=== PATIENT | female | born 1995 | race Two or more races ===

== ENCOUNTER 2020-10-17 08:45 | Emergency (ER) | payer OTHER ==
[~2020-10-17] VITALS: Ht 162.6 cm; Wt 100.0 kg
--- NOTE | 2020-10-17 09:23 | PHYS DOC ---
Past Medical History Past Medical History: No Pertinent History Past Surgical History: No Surgical History Smoking Status: Never Smoker Alcohol Use: None Drug Use: None General Adult EDM: Chief Complaint: MECHANICAL FALL HPI: HPI: 24-year-old female who fell this morning while slipping on ice. She is about 9 weeks by ultrasound. She initially had some knee pain which is since resolved. Now she has some lower abdominal pain with cramping and has had vaginal bleeding. She reports being a positive blood type. She denies nausea or vomiting. She denies fevers or chills. Her pain is a cramping nonradiating pain that is mild to moderate. She denies head injury or loss of consciousness. Review of systems negative for chest pain shortness of breath vomiting fevers chills. All other review of systems negative. ED course: 24-year-old female presenting after a fall approximately 9 weeks by ultrasound. She is a -0-0-2 . knee exam is unremarkable. Abdomen is soft and nontender to palpation. Patient had a miscarriage in the emergency department. tissue was sent to pathology. I spoke with OB gynecology because she continued to have vaginal bleeding. She was then transferred to the operating room for a D&C. The patient was then discharged after the procedure. Heart Score: Risk Factors: Risk Factors: DM, Current or recent (<one month) smoker, HTN, HLP, family history of CAD, obesity. Risk Scores: Score 0 - 3: 2.5% MACE over next 6 weeks - Discharge Home Score 4 - 6: 20.3% MACE over next 6 weeks - Admit for Clinical Observation Score 7 - 10: 72.7% MACE over next 6 weeks - Early Invasive Strategies Allergies: Allergies: Allergies Coded Allergies Type Severity Reaction Last Updated Verified No Known Drug Allergies 10/17/20 No Physical Exam: PE: Constitutional: Well developed, well nourished, no acute distress, non-toxic appearance. [] HENT: Normocephalic, atraumatic, bilateral external ears normal, oropharynx moist, no oral exudates, nose normal. [] Eyes: PERRLA, EOMI, conjunctiva normal, no discharge. [] Neck: Normal range of motion, no tenderness, supple, no stridor. [] Cardiovascular:Heart rate regular rhythm, no murmur [] Lungs & Thorax: Bilateral breath sounds clear to auscultation [] Abdomen: Bowel sounds normal, soft, no tenderness, no masses, no pulsatile masses. No rebound tenderness or guarding. Skin: Warm, dry, no erythema, no rash. [] Back: No tenderness, no CVA tenderness. [] Extremities: The patient's left knee is nontender to palpation without abrasions lacerations or ecchymosis. Normal range of motion. Palpable pulse distally with DP pulse. 2-second cap refill with normal motor and sensory function of the foot. Ankle is nontender. The remainder the extremities are nontender with normal range of motion and palpable pulse and 2-second cap refill. No pain at the joints with range of motion. Neurologic: Alert and oriented X 3, normal motor function, normal sensory function, no focal deficits noted. [] Psychologic: Affect normal, judgement normal, mood normal. [] EKG: EKG: [] Radiology/Procedures: Radiology/Procedures: [] Course & Med Decision Making: Course & Med Decision Making Pertinent Labs and Imaging studies reviewed. (See chart for details) [] Dragon Disclaimer: Dragon Disclaimer: This electronic medical record was generated, in whole or in part, using a voice recognition dictation system. Departure Departure Impression: Primary Impression: Vaginal bleeding during Additional Impression: Miscarriage Disposition: 01 DC HOME SELF CARE/HOMELESS Condition: STABLE Patient Instructions: Miscarriage Additional Instructions: Follow-up with your primary physician in 1 to 2 days. Return to the emergency department if you have any new or concerning findings. Scripts Ibuprofen (IBUPROFEN) 800 Mg Tablet 800 MG PO PRN Q8HRS PRN for INFLAMMATION, #30 TAB 2 Refills Prov: KEILA GONSALVES MD 10/17/20 Cephalexin (KEFLEX) 750 Mg Capsule 1 CAP PO BID for 5 Days, #10 CAP 0 Refills Prov: LIANNE STARR MD 10/17/20 Hydrocodone Bit/Acetaminophen (HYDROCODONE-APAP 5-325 ) 1 Tab Tablet 1 TAB PO PRN Q8HRS PRN for sev, #8 TAB 0 Refills Prov: LIANNE STARR MD 10/17/20 LIANNE STARR MD Oct 17, 2020 09:23
[2020-10-17 10:14] LABS: BASO # 0.1 x10^3/uL (0.0-0.2); BASO % 1 % (0-3); EOS # 0.1 x10^3/uL (0.0-0.7); EOS % 1 % (0-3); HEMATOCRIT 37.9 % (36.0-47.0); HEMOGLOBIN 12.6 g/dL (12.0-15.5); LYMPH # 2.6 x10^3/uL (1.0-4.8); LYMPH % 18 % (24-48); MEAN CORPUSCULAR HEMOGLOBIN 27 pg (25-35); MEAN CORPUSCULAR HGB CONC 33 g/dL (31-37); MEAN CORPUSCULAR VOLUME 80 fL (79-100); MONO # 0.9 x10^3/uL (0.0-1.1); MONO % 7 % (0-9); NEUT # 10.8 x10^3/uL (1.8-7.7); NEUT % 74 % (31-73); PLATELET COUNT 333 x10^3/uL (140-400); RED BLOOD COUNT 4.74 x10^6/uL (3.50-5.40); RED CELL DISTRIBUTION WIDTH 14.3 % (11.5-14.5); WHITE BLOOD COUNT 14.6 x10^3/uL (4.0-11.0)
--- NOTE | 2020-10-17 10:22 | RAD ---
EXAM: Obstetrics sonogram. HISTORY: Pain and bleeding. TECHNIQUE: Transabdominal and transvaginal sonographic imaging of the pelvis was performed. COMPARISON: None. FINDINGS: The uterus measures 12.6 x 4.7 x 6.2 cm. There is a single intrauterine gestational sac and pole. The gestational sac and pole descend into the central canal during the exam. The f etal heart rate is normal at 141 bpm. The crown-rump length is 2.11 cm, corresponding with a ge stational age of 8 weeks and 5 days. The ovaries are obscured. There is active the vaginal bleeding d uring the exam. IMPRESSION: 1. Single intrauterine fetus with normal heart rate and gestational age based on ultrasound measureme nts of 8 weeks and 5 days actively descending into the cervical canal with active vaginal bleeding du ring the exam, consistent with impending miscarriage. 2. These findings were communicated to the emergency department by the hydrometallurgical engineer at the time of the exam. Electronically signed by: Zakia Chu MD (10/17/2020 10:19 AM) [id number]
[2020-10-17 10:31] LABS: CALCIUM 8.8 mg/dL (8.5-10.1); CREATININE 0.6 mg/dL (0.6-1.0); GFR 120.8; POTASSIUM 3.7 mmol/L (3.5-5.1)
[2020-10-17 10:34] LABS: BILIRUBIN,URINE NEGATIVE (NEG); CLARITY,URINE CLEAR; COLOR,URINE YELLOW; NITRITE,URINE NEGATIVE (NEG); PROTEIN,URINE NEGATIVE (NEG-TRACE)
[2020-10-17 10:36] LABS: ALBUMIN 3.5 g/dL (3.4-5.0); DIRECT BILIRUBIN 0.2 mg/dL (0.0-0.2); TOTAL BILIRUBIN 0.5 mg/dL (0.2-1.0); TOTAL PROTEIN 6.9 g/dL (6.4-8.2)
[2020-10-17 10:51] LABS: BACTERIA,URINE 0 /HPF (0-FEW)
[2020-10-17] MEDS ORDERED: HYDROmorphone 2 MG/ML VIAL IV/SQ PRN (12:00)
[2020-10-17] MEDS ORDERED: HYDR-2761 PO ×2 (12:26→17:39)
[2020-10-17] MEDS ORDERED: HYDROcodone/APAP 5/325MG 1 TAB TABLET PO ONE (12:30)
[2020-10-17] MEDS ORDERED: CEPH750C9 PO (12:41)
[2020-10-17] MEDS ORDERED: MORPHINE SULFATE 2 MG/ML VIAL. IV PRN (15:15)
[2020-10-17] MEDS ORDERED: LIDOCAINE 1% PF 2 ML VIAL. ID PRN (15:15)
[2020-10-17] MEDS ORDERED: HYDROmorphone 2 MG/ML VIAL IV PRN (15:15)
[2020-10-17] MEDS ORDERED: PROCHLORPERAZINE 10 MG/2 ML VIAL. IV PRN (15:15)
[2020-10-17] MEDS ORDERED: fentaNYL PF VIAL 100 MCG/2 ML VIAL IV PRN ×2 (15:15)
[2020-10-17] MEDS ORDERED: ONDANSETRON PF 4 MG/2 ML VIAL. IV PRN (15:15)
--- NOTE | 2020-10-17 15:29 | PDOC1 ---
[facility] H&P Date of Admission: Date of Admission: History of Present Illness: EDC: 05/12/21 LMP: 08/05/20 24y presents to the ER after a fall. The pt fell on a ice when she was walking into work. She was advised by her coworkers to call her doctor. Her doctor told her to present to the ER. Shortly after she began to have heavy bleeding with clots. An u/s was performed revealing a single intrauterine fetus with normal heart rate and gestational age based on ultrasound measurements of 8 weeks and 5 days actively descending into the cervical canal with active vaginal bleeding during the exam, consistent with impending miscarriage. The pt believes that she has passed the fetus, but she is still bleeding. With her first she had a SAB requiring a D&C to stop her bleeding. This bleeding today is similar. PMH: PCOS PSH: Gastric sleeve Meds: PNV, Progesterone All: NKDA OBHx: SAB x 2 Telecommunications Engineer: LMP 08/05/20 7yo / 1-2 months irregular SH: no tob, no etOH Medications: Meds: Current Medications Medications (Trade) Dose Ordered Sig/Pool Route PRN Reason Start Time Stop Time Status Last Admin Dose Admin Acetaminophen/ Hydrocodone Bitart (Lortab 5/325) 2 tab 1X ONCE PO 10/17/20 12:30 10/17/20 12:31 DC 10/17/20 12:32 Allergies: Coded Allergies: No Known Drug Allergies (Unverified , 10/17/20) Physical Exam: Vital Signs: Vital Signs Date Time Temp Pulse Resp B/P (MAP) Pulse Ox O2 Delivery O2 Flow Rate FiO2 10/17/20 14:07 58 16 99 10/17/20 12:32 Room Air 10/17/20 09:00 97.2 108/59 (75) 97.2 PE: GENERAL: No apparent distress. Alert and oriented. HEENT: Head normocephalic, atraumatic. NECK: Supple LUNGS: Clear to auscultation. HEART: RRR, S1, S2 present, pulses intact ABDOMEN: Soft, positive bowel sounds. EXTREMITIES: No cyanosis or edema. NEUROLOGIC: Normal speech, normal tone PSYCHIATRIC: Normal affect, normal mood. SKIN: No ulceration. Labs: Laboratory Tests Test 10/17/20 10:00 10/17/20 10:21 White Blood Count 14.6 x10^3/uL (4.0-11.0) H Red Blood Count 4.74 x10^6/uL (3.50-5.40) Hemoglobin 12.6 g/dL (12.0-15.5) Hematocrit 37.9 % (36.0-47.0) Mean Corpuscular Volume 80 fL (79-100) Mean Corpuscular Hemoglobin 27 pg (25-35) Mean Corpuscular Hemoglobin Concent 33 g/dL (31-37) Red Cell Distribution Width 14.3 % (11.5-14.5) Platelet Count 333 x10^3/uL (140-400) Neutrophils (%) (Auto) 74 % (31-73) H Lymphocytes (%) (Auto) 18 % (24-48) L Monocytes (%) (Auto) 7 % (0-9) Eosinophils (%) (Auto) 1 % (0-3) Basophils (%) (Auto) 1 % (0-3) Neutrophils # (Auto) 10.8 x10^3/uL (1.8-7.7) H Lymphocytes # (Auto) 2.6 x10^3/uL (1.0-4.8) Monocytes # (Auto) 0.9 x10^3/uL (0.0-1.1) Eosinophils # (Auto) 0.1 x10^3/uL (0.0-0.7) Basophils # (Auto) 0.1 x10^3/uL (0.0-0.2) Maternal Serum HCG Beta Subunit 98259 mIU/mL (0-5) H Sodium Level 138 mmol/L (136-145) Potassium Level 3.7 mmol/L (3.5-5.1) Chloride Level 104 mmol/L (98-107) Carbon Dioxide Level 23 mmol/L (21-32) Anion Gap 11 (6-14) Blood Urea Nitrogen 6 mg/dL (7-20) L Creatinine 0.6 mg/dL (0.6-1.0) Estimated GFR (Cockcroft-Gault) 120.8 Glucose Level 84 mg/dL (70-99) Calcium Level 8.8 mg/dL (8.5-10.1) Total Bilirubin 0.5 mg/dL (0.2-1.0) Direct Bilirubin 0.2 mg/dL (0.0-0.2) Aspartate Amino Transferase (AST) 12 U/L (15-37) L Alanine Aminotransferase (ALT) 24 U/L (14-59) Alkaline Phosphatase 44 U/L (46-116) L Total Protein 6.9 g/dL (6.4-8.2) Albumin 3.5 g/dL (3.4-5.0) Lipase 101 U/L (73-393) Urine Collection Type Unknown Urine Color Yellow Urine Clarity Clear Urine pH 7.0 (<5.0-8.0) Urine Specific [place] 1.025 (1.000-1.030) Urine Protein Negative mg/dL (NEG-TRACE) Urine Glucose (UA) Negative mg/dL (NEG) Urine Ketones (Stick) 40 mg/dL (NEG) Urine Blood Trace (NEG) Urine Nitrite Negative (NEG) Urine Bilirubin Negative (NEG) Urine Urobilinogen Dipstick 1.0 mg/dL (0.2 mg/dL) Urine Leukocyte Esterase Negative (NEG) Urine RBC 1-2 /HPF (0-2) Urine WBC 1-4 /HPF (0-4) Urine Squamous Epithelial Cells Mod /LPF Urine Bacteria 0 /HPF (0-FEW) Urine Mucus Marked /LPF Laboratory Tests 10/17/20 10:00 Laboratory Tests 10/17/20 10:00 Laboratory Tests 10/17/20 10:00 Assessment & Plan: A/P 24y with SAB 1.) SAB still bleeding, will take to OR for D&C 2.) VB 3.) PCOS 4.) Recurrent loss KEILA GONSALVES MD Oct 17, 2020 15:29
[2020-10-17] MEDS ORDERED: DOXYCYCLINE HYCLATE 100 MG TABLET PO ONE (16:00)
[2020-10-17] MEDS: IV RINGERS,LACTATED 1000ML 1,000 ML IV SCH ×2 (16:03→17:22)
[2020-10-17] MEDS ORDERED: LIDOCAINE 2% PF 5 ML VIAL. ONE (16:30)
[2020-10-17] MEDS ORDERED: PROPOFOL 10 MG/ML (20ML) VIAL. IV ONE (16:30)
[2020-10-17] MEDS ORDERED: SEVOFLURANE 31 TO 60 MINUTES. IH ONE (16:30)
[2020-10-17] MEDS ORDERED: KETOROLAC 30 MG/ML VIAL. ONE (16:32)
[2020-10-17] MEDS ORDERED: DEXAMETHASONE SOD PHOS 4 MG/ML VIAL ONE (16:32)
[2020-10-17] MEDS ORDERED: ONDANSETRON PF 4 MG/2 ML VIAL. ONE (16:32)
--- NOTE | 2020-10-17 17:04 | PDOC4 ---
OPERATIVE NOTE: PreOp Dx: 1.) 10wk AB, 2.) VB, 3.) PCOS, 4.) Recurrent loss PostOp Dx: same Procedure: Suction D&C Surgeon: Amada Gonsalves Anesthesia: LMA EBL: 50 cc Fluids: 800 cc UOP: 100 cc Specimen: POC Complications: None KEILA GONSALVES MD Oct 17, 2020 17:04
[2020-10-17] MEDS ORDERED: IBUP-1060 PO (17:10)
[2020-10-17] MEDS ORDERED: OXYC1TAB15 PO (17:10)
--- NOTE | 2020-10-17 17:18 | OP ---
DATE OF SURGERY: 10/17/2020 PREOPERATIVE DIAGNOSES: 1. A 10-week . 2. Vaginal bleeding. 3. Polycystic ovary syndrome. 4. Recurrent loss. POSTOPERATIVE DIAGNOSES: 1. A 10-week . 2. Vaginal bleeding. 3. Polycystic ovary syndrome. 4. Recurrent loss. PROCEDURE: Suction D and C. SURGEON: Keila Gonsalves MD ANESTHESIA: LMA. ESTIMATED BLOOD LOSS: 50 mL. FLUIDS: 800 mL. URINE OUTPUT: 100 mL. SPECIMENS: Products of conception. COMPLICATIONS: None. DESCRIPTION OF PROCEDURE: The patient was taken to the operating room where an LMA was placed without difficulty. The patient was prepped and draped in a normal sterile fashion. Speculum was placed into the vagina and a right angle retractor was used to visualize the cervix. At that time, a single tooth tenaculum was then placed on the anterior lip of the cervix. The cervix was sufficiently dilated to allow for a 10 curved suction curette. This curette was then advanced to the uterine fundus and the suction was then activated. The curettage was rotated to clear all products of conception. This was accomplished with 2 passes. At that point, sharp curetting was performed. There were some products of conception that were revealed with the sharp curetting, so the suction curette was performed once again until all products were clear. By the third pass, minimal products and minimal blood was returning. At that point, the procedure was terminated. The single tooth tenaculum was removed with minimal bleeding at the tenaculum site. Good hemostasis was noted. The patient was then taken to the recovery room in stable condition. 200 mg of doxycycline were given prior to the procedure. KEILA GONSALVES MD DR: STEVEN/ness JOB#: [id number] / [id number]
[2020-10-17 17:50] VITALS: BP 153/36
[2020-10-17] MEDS ORDERED: oxyCODONE/APAP 5/325 1 TAB TABLET PO ONE (18:00)
--- NOTE | 2020-10-20 10:27 | NUR ---
IP: Attempted to contact pt concerning COVID results. No answer, left a voicemail to return the call.
--- NOTE | 2020-10-20 10:35 | NUR ---
IP: Pt returned the call and informed her of negative COVID results. Pt verbalized understanding.
--- NOTE | 2020-10-23 09:21 | PATHOLOGY ---
[facility] Accession Number: [id number] . 01 Material submitted: . product of conception - PRODUCTS OF CONCEPTION . 01 Clinical history: . INCOMPLETE SUCTION D AND C . 02 Diagnosis: Uterine contents, suction D and C: - Products of conception, comprised of few chorionic villi and segments of decidual tissue showing focal hemorrhage and acute inflammation. (JPM:software technical lead; 10/22/2020) MBR 10/22/2020 1545 Local . 02 Electronically signed: . Arun Pulido MD, Pathologist NPI- [id number] . 01 Gross description: . The specimen is received in formalin, labeled "Damion, Nancy, products of conception" and consists of hemorrhagic brown tissue measuring 8.8 x 6.8 x 2.1 cm. No parts or vesicular structures are identified. Manager Contact tissue is submitted in A1-A3. (SDY; 10/21/2020) SYU/SYU 10/21/2020 1656 Local . 02 Pathologist provided ICD-10: O03.4 . 02 CPT . 803014 Specimen Comment: A courtesy copy of this report has been sent to [phone] Specimen Comment: Report sent to Specimen Comment: A duplicate report has been generated due to demographic updates. Performed at: 01 [facility] [address], [place] [id number] MD Calos Herrera MD Phone: [phone] Performed at: 02 [facility] [address], [place] [id number] MD Arun Pulido MD Phone: [phone]
== END 2020-10-17 18:25 | disposition home or self-care (01) ==
LOC: ER 08:45
DX: O03.4 Incomplete spontaneous abortion without complication (principal); O03.9 Complete or unspecified spontaneous abortion without complication; N93.9 Abnormal uterine and vaginal bleeding, unspecified; E28.2 Polycystic ovarian syndrome; N96 Recurrent pregnancy loss; Z3A.09 9 weeks gestation of pregnancy; Z20.828 Contact with and (suspected) exposure to other viral communicable diseases; Z79.899 Other long term (current) drug therapy; Z98.890 Other specified postprocedural states
CPT/HCPCS: 36415; 59812; 76801; 76817; 80048; 80076; 81001; 83690; 84702; 85025; 86850; 86900; 86901; 87426; 88305; 96360; 96361; 99285; C9803; J1100; J1885; J2405; J2704; J7120; U0003